=== PATIENT | male | born 1950 | race Caucasian/White ===

== ENCOUNTER 2017-09-12 07:00 | Outpatient (CLI) | payer MEDICARE ==
[~2017-09-12 07:00] MED LIST: AMLO10TA PO; CEPH500C2 PO; FURO-150 PO; IBUP-1594 PO; LORA10TA7 PO; LOSA100T28 PO; POTA10TA19 PO; SOLI10TA2 PO
[2017-09-13] MEDS ORDERED: LORA-512 PO (06:12)
[2017-09-13] MEDS ORDERED: ASPI-611 PO (06:12)
== END 2017-09-12 23:59 | disposition home or self-care (01) ==
LOC: LAB 07:00
PROVIDERS: ATTEND Urology
DX: C61 Malignant neoplasm of prostate (principal); Z87.891 Personal history of nicotine dependence
CPT/HCPCS: 36415; 84153

== ENCOUNTER 2017-09-13 05:33 | Day surgery (SDC) | payer MEDICARE ==
[2017-09-12 08:46] LABS: BASOPHILS % (AUTO) 0.4 % (0-1); EOSINOPHILS # (AUTO) 0.3 X10'3 (0-0.9); EOSINOPHILS % (AUTO) 3.4 % (0-6); HEMATOCRIT 41.9 % (42.0-52.0); HEMOGLOBIN 14.4 g/dl (14.0-17.9); LYMPHOCYTES # (AUTO) 1.5 X10'3 (1.1-4.8); MEAN CORPUSCULAR HEMOGLOBIN 32.1 PG (27.0-31.0); MEAN CORPUSCULAR HGB CONC 34.2 % (33.0-36.5); MEAN CORPUSCULAR VOLUME 93.7 FL (78-98); MEAN PLATELET VOLUME 9.6 FL (7.4-10.4); MONOCYTES # (AUTO) 0.5 X10'3 (0-0.9); MONOCYTES % (AUTO) 6.9 % (2-12); NEUTROPHILS # (AUTO) 5.6 X10'3 (1.8-7.7); NEUTROPHILS % (AUTO) 70.3 % (42-75); PLATELET COUNT 140 X10'3 (140-440); RED BLOOD COUNT 4.48 X10'6 (4.70-6.10); RED CELL DISTRIBUTION WIDTH 13.4 % (11.5-14.5); WHITE BLOOD COUNT 7.9 X10'3 (4.5-11.0)
[2017-09-12 09:05] LABS: PARTIAL THROMBOPLASTIN TIME 25 SECONDS (22-32); PROTHROMBIN TIME 10.3 SECONDS (9.0-12.0)
[2017-09-12 09:17] LABS: ALANINE AMINOTRANSFERASE 47 U/L (12-78); ALBUMIN 3.3 G/DL (3.4-5.0); ALBUMIN/GLOBULIN RATIO 0.9 (1.1-1.5); ALKALINE PHOSPHATASE 90 IU/L (46-116); ANION GAP 9 (8-16); ASPARTATE AMINO TRANSFERASE 21 U/L (10-37); BILIRUBIN,TOTAL 0.8 MG/DL (0.1-1.0); BLOOD UREA NITROGEN 23 MG/DL (7-18); BUN/CREATININE RATIO 23.2 (5.4-32.0); CALCIUM 8.2 MG/DL (8.5-10.1); CHLORIDE 107 MMOL/L (99-107); CHOL/HDL RATIO 4.4 (0.00-4.99); CHOLESTEROL 199 MG/DL (0-200); CREATININE 0.99 MG/DL (0.60-1.10); GLUCOSE 93 MG/DL (70-104); HDL CHOLESTEROL 45 MG/DL (35-60); LDL CHOLESTEROL 143 MG/DL (50-100); SODIUM 142 MMOL/L (135-145); TOTAL PROTEIN 7.1 G/DL (6.4-8.2); TRIGLYCERIDES 75 MG/DL (20-135); eGFR 75 ML/MIN
[~2017-09-13] VITALS: Ht 182.9 cm; Wt 159.6 kg
[2017-09-13] VITALS (13 sets, daily range): BP systolic 108–143; BP diastolic 55–106
[2017-09-13] MEDS ORDERED: LORA-512 PO (06:12)
[2017-09-13] MEDS ORDERED: ASPI-611 PO (06:12)
[2017-09-13] MEDS ORDERED: diphenhydrAMINE 25mg capsule PO PRN (06:15)
[2017-09-13] MEDS ORDERED: LORazepam 0.5 MG tablet PO PRN (06:15)
[2017-09-13] MEDS ORDERED: normal saline 1000ml 1,000 ML IV SCH (06:15)
[2017-09-13] MEDS ORDERED: fentaNYL/PF 50MCG/1 ML 2ML syringe ONE (07:45)
[2017-09-13] MEDS ORDERED: heparin 1,000unit/ml 10ml vial 10 ML ONE (07:45)
[2017-09-13] MEDS ORDERED: nitroGLYCERIN-Tridil 50MG/D5W 250 ML IV ONE (07:45)
[2017-09-13] MEDS ORDERED: midazolam 2 mg/2 ml injection ONE (07:45)
[2017-09-13] MEDS ORDERED: iohexol 350 MG/ML 50ML vial IV ONE (07:46)
[2017-09-13] MEDS ORDERED: iohexol 350MG/ML 100ml bottle IV ONE (07:46)
[2017-09-13] MEDS ORDERED: LIDOcaine 1% w/EPI 1:100,000 30ml vial (MDV) ONE (07:46)
[2017-09-13 10:30] LABS: ISTAT Hct MIX 39 %PCV (42-52); ISTAT O2 SATURATION MIX VENOUS 77 % (60-80); ISTAT SOURCE MIX
[2017-09-13 10:30] LABS: ISTAT HGB ART 13.6 g/dl (14.0-18.0); ISTAT Hct ART 40 %PCV (42-52); ISTAT O2 SATURATION ARTERIAL 96 % (95-98); ISTAT SOURCE ART
== END 2017-09-13 15:09 | disposition home or self-care (01) ==
LOC: SSTAY O 05:33
PROVIDERS: ATTEND Internal Medicine Cardiovascular Disease
DX: I25.118 Atherosclerotic heart disease of native coronary artery with other forms of angina pectoris (principal); I10 Essential (primary) hypertension; E78.5 Hyperlipidemia, unspecified; G47.33 Obstructive sleep apnea (adult) (pediatric); I25.2 Old myocardial infarction; E66.9 Obesity, unspecified; I08.0 Rheumatic disorders of both mitral and aortic valves; K21.9 Gastro-esophageal reflux disease without esophagitis; Z98.41 Cataract extraction status, right eye; Z98.42 Cataract extraction status, left eye; Z86.74 Personal history of sudden cardiac arrest; Z87.891 Personal history of nicotine dependence; Z72.89 Other problems related to lifestyle; Z79.82 Long term (current) use of aspirin; Z85.46 Personal history of malignant neoplasm of prostate; Z79.1 Long term (current) use of non-steroidal anti-inflammatories (NSAID); Z68.42 Body mass index [BMI] 45.0-49.9, adult; Z79.899 Other long term (current) drug therapy; Z98.890 Other specified postprocedural states; Z88.8 Allergy status to other drugs, medicaments and biological substances
CPT/HCPCS: 36415; 80053; 80061; 82803; 83880; 85014; 85025; 85610; 85730; 93005; 93460; 99152; 99153; A6257; J1644; J2250; J3010; J3490; J7030; Q9967; 93458; A4620

== ENCOUNTER 2018-02-16 12:18 | Outpatient (CLI) | payer MEDICARE ==
[2018-02-16] VITALS (20 sets, daily range): BP systolic 71–135; BP diastolic 50–97
[~2018-02-16 12:18] MED LIST changes: +ASPI-611 PO; -CEPH500C2 PO; +LORA-512 PO; -LORA10TA7 PO; +LOSA100T15 PO; -LOSA100T28 PO
== END 2018-02-16 23:59 | disposition home or self-care (01) ==
LOC: CARD DIAG 12:18
PROVIDERS: ATTEND Internal Medicine Cardiovascular Disease
DX: R42 Dizziness and giddiness (principal); I25.2 Old myocardial infarction; Z79.82 Long term (current) use of aspirin; Z87.891 Personal history of nicotine dependence
CPT/HCPCS: 93660

== ENCOUNTER 2018-11-22 06:31 | Day surgery (SDC) | payer MEDICARE ==
[~2018-11-22] VITALS: Ht 182.9 cm; Wt 157.0 kg
[2018-11-22] VITALS (8 sets, daily range): BP systolic 100–172; BP diastolic 51–87
[~2018-11-22 06:31] MED LIST changes: -AMLO10TA PO; -ASPI-611 PO; +ATOR-2 PO; -IBUP-1594 PO; -LORA-512 PO; -LOSA100T15 PO; +LOSA100T57 PO; +METO25TA6 PO
[2018-11-22 07:51] LABS: ISTAT CREATININE 1.1 mg/dL (0.8-1.3); ISTAT HGB 13.6 g/dl (14.0-18.0); ISTAT IONIZED CALCIUM 1.17 mmol/L (1.03-1.32); ISTAT K 4.5 mmol/L (3.5-5.1); POC BUN/CREATININE RATIO 25.5 (5.4-32.0)
[2018-11-22] MEDS ORDERED: epiNEPHrine 1 mg/ml inj ONE (08:18)
[2018-11-22] MEDS ORDERED: LIDOcaine 1% 30ml preserv. free vial ONE (08:18)
[2018-11-22] MEDS ORDERED: LIDOcaine 2% 5ml jelly MM ONE (08:30)
--- NOTE | 2018-11-22 08:36 | NUR ---
LEG BAG ATTACHED TO SUPRAPUBIC CATH CHANGED TO GRAVITY BAG FOR SURG, LEG BAG PLACED IN BACKPACK
[2018-11-22] MEDS ORDERED: cefazolin/dext.iso 2gm/100 ML IV ONE (08:45)
[2018-11-22] MEDS ORDERED: ringers solution, lacted 1,000 ML IV SCH ×2 (08:45→09:56)
[2018-11-22] MEDS ORDERED: famotidine 20mg tablet PO ONE (08:45)
[2018-11-22] MEDS ORDERED: DOCUMENT DATE & TIME OF BETA-BLOCKER PO ONE (08:45)
[2018-11-22] MEDS ORDERED: ceFAZolin 1GM/D5W- ADD-VANTAGE 50 ML IV ONE (08:45)
[2018-11-22] MEDS ORDERED: BUPIVAcaine/PF 2.5 mg/ml (0.25%) 30ml vial ONE (09:53)
[2018-11-22] MEDS ORDERED: labetalol 20mg/4ml (5mg/ml) syringe IV PRN (10:00)
[2018-11-22] MEDS ORDERED: hydrALAZINE 20mg/ml inj. IV PRN (10:00)
[2018-11-22] MEDS ORDERED: dexmedetomidine 200mcg/2ml inj. IV ONE (10:00)
[2018-11-22] MEDS ORDERED: ondansetron/PF 4mg/2ml inj IV PRN (10:00)
[2018-11-22] MEDS ORDERED: morphine 4 MG/ML inj SYRINge IV PRN ×2 (10:00)
[2018-11-22] MEDS ORDERED: fentaNYL/PF 50MCG/1 ML 2ML syringe IV PRN ×2 (10:00)
[2018-11-22] MEDS ORDERED: hydrALAZINE 20mg/ml inj. IV ONE (10:22)
[2018-11-22] MEDS ORDERED: acetaminophen 1,000mg/100ml IV 100 ML IV ONE (10:26)
[2018-11-22] MEDS ORDERED: fentaNYL/PF 50MCG/1 ML 2ML syringe ONE (10:28)
--- NOTE | 2018-11-22 11:00 | NUR ---
Received from OR via BED, accompanied by Anesthesiologist DR LUIS-- and report given by Anesthesiolgist. PATIENT A&OX4, DENIES PAIN, V/S WNL, NEUROVASCULAR CHECKS INTACT, 20G PIV LUE, SCD ON. DRESSING CDI TO POSTERIOR BACK NECK. F/C DRAINING CLEAR YELLOW URINE
--- NOTE | 2018-11-22 11:50 | NUR ---
PATIENT A&OX4, DENIES PAIN, V/S WNL, NEUROVASCULAR CHECKS INTACT, 20G PIV LUE D/C, SCD OFF. DRESSING CDI TO POSTERIOR BACK NECK. SUPRAPUBIC F/C DRAINING INTO LEG BAG CLEAR YELLOW URINE. I HAVE REVIEWED D/C INSTRUCTIONS WITH PATIENT AND HE HAS VERBALIZED UNDERSTANDING. PATIENT D/C HOME WITH ALL BELONGINGS AND [facility] GAVE TRANSPORT HOME.
== END 2018-11-22 11:50 | disposition home or self-care (01) ==
LOC: PAS 06:31
PROVIDERS: ATTEND Surgery
DX: D17.0 Benign lipomatous neoplasm of skin and subcutaneous tissue of head, face and neck (principal); D17.1 Benign lipomatous neoplasm of skin and subcutaneous tissue of trunk; I25.2 Old myocardial infarction; I10 Essential (primary) hypertension; E66.9 Obesity, unspecified; Z68.42 Body mass index [BMI] 45.0-49.9, adult; Z87.891 Personal history of nicotine dependence; Z85.038 Personal history of other malignant neoplasm of large intestine; Z85.46 Personal history of malignant neoplasm of prostate; Z88.8 Allergy status to other drugs, medicaments and biological substances; Z79.899 Other long term (current) drug therapy
CPT/HCPCS: 21930; 80047; J0131; J0171; J0360; J0690; J2001; J3010; J3490; 88304; A6258; A6449; A7000; J7120

== ENCOUNTER 2019-08-01 06:53 | Day surgery (SDC) | payer MEDICARE ==
[2019-07-31 14:02] LABS: BASOPHILS # (AUTO) 0.1 X10'3 (0-0.2); BASOPHILS % (AUTO) 0.7 % (0-1); EOSINOPHILS # (AUTO) 0.4 X10'3 (0-0.9); EOSINOPHILS % (AUTO) 5.4 % (0-6); HEMATOCRIT 44.1 % (42.0-52.0); HEMOGLOBIN 14.6 g/dl (14.0-17.9); LYMPHOCYTES # (AUTO) 2.4 X10'3 (1.1-4.8); LYMPHOCYTES % (AUTO) 32.5 % (21-51); MEAN CORPUSCULAR HEMOGLOBIN 32.2 PG (27.0-31.0); MEAN CORPUSCULAR HGB CONC 33.2 g/dL (33.0-36.5); MEAN CORPUSCULAR VOLUME 96.9 FL (78-98); MEAN PLATELET VOLUME 10.1 FL (7.4-10.4); MONOCYTES # (AUTO) 0.7 X10'3 (0-0.9); MONOCYTES % (AUTO) 9.7 % (2-12); NEUTROPHILS # (AUTO) 3.9 X10'3 (1.8-7.7); NEUTROPHILS % (AUTO) 51.7 % (42-75); PLATELET COUNT 139 X10'3 (140-440); RED BLOOD COUNT 4.55 X10'6 (4.70-6.10); RED CELL DISTRIBUTION WIDTH 12.6 % (11.5-14.5); WHITE BLOOD COUNT 7.4 X10'3 (4.5-11.0)
[2019-07-31 14:11] LABS: ALBUMIN 3.5 G/DL (3.4-5.0); ANION GAP 11 (8-16); BLOOD UREA NITROGEN 24 MG/DL (7-18); BUN/CREATININE RATIO 20.5 (5.4-32.0); CALCIUM 8.4 MG/DL (8.5-10.1); CHLORIDE 107 MMOL/L (99-107); CREATININE 1.17 MG/DL (0.60-1.10); GLUCOSE 78 MG/DL (70-104); POTASSIUM 4.3 MMOL/L (3.5-5.1); SODIUM 142 MMOL/L (135-145); TOTAL CARBON DIOXIDE 23.9 MMOL/L (24-32); eGFR 61 ML/MIN
[2019-07-31 14:15] LABS: PARTIAL THROMBOPLASTIN TIME 27 SECONDS (22-32)
[2019-08-01] VITALS (13 sets, daily range): BP systolic 145–182; BP diastolic 51–111
[~2019-08-01] VITALS: Ht 182.9 cm; Wt 73.0 kg
[2019-08-01] MEDS ORDERED: diphenhydrAMINE 25mg capsule PO PRN (07:25)
[2019-08-01] MEDS ORDERED: normal saline 1,000 ML IV SCH ×2 (07:25→10:50)
[2019-08-01] MEDS ORDERED: LORazepam 0.5 MG tablet PO PRN (07:25)
[2019-08-01] MEDS ORDERED: Diclofenac PO (07:26)
[2019-08-01] MEDS ORDERED: LIDOcaine/PRILOcaine 5gm cream TP ONE (07:30)
[2019-08-01] MEDS ORDERED: fentaNYL/PF 50MCG/1 ML 2ML syringe ONE (09:07)
[2019-08-01] MEDS ORDERED: heparin 1,000unit/ml 10ml vial 10 ML ONE (09:07)
[2019-08-01] MEDS ORDERED: LIDOcaine 1% (10mg/ml)w/preservative injection 20ml MDV ONE (09:07)
[2019-08-01] MEDS ORDERED: midazolam 2 mg/2 ml injection ONE (09:07)
[2019-08-01] MEDS ORDERED: verapamil 2.5 mg/ml inj IV ONE (09:07)
[2019-08-01] MEDS ORDERED: nitroGLYCERIN-Tridil 50MG/D5W 250 ML IV ONE (09:07)
[2019-08-01] MEDS ORDERED: iohexol 350 MG/ML 50ML vial IV ONE ×3 (09:08→10:03)
[2019-08-01] MEDS ORDERED: iohexol 350MG/ML 100ml bottle IV ONE (09:08)
== END 2019-08-01 16:00 | disposition home or self-care (01) ==
LOC: SSTAY O 06:53
PROVIDERS: ATTEND Internal Medicine Cardiovascular Disease
DX: R94.39 Abnormal result of other cardiovascular function study (principal); I25.10 Atherosclerotic heart disease of native coronary artery without angina pectoris; I10 Essential (primary) hypertension; E78.49 Other hyperlipidemia; G47.30 Sleep apnea, unspecified; M13.88 Other specified arthritis, other site; E66.9 Obesity, unspecified; Z68.42 Body mass index [BMI] 45.0-49.9, adult; Z98.890 Other specified postprocedural states; Z87.891 Personal history of nicotine dependence; Z79.01 Long term (current) use of anticoagulants; Z79.899 Other long term (current) drug therapy; Z85.46 Personal history of malignant neoplasm of prostate
CPT/HCPCS: 36415; 80048; 85025; 85610; 85730; 93005; 93458; 99152; 99153; C1769; C1894; J1644; J2001; J2250; J3010; J7030; Q0163; Q9967; A4620; A5120; J3490

== ENCOUNTER 2019-11-01 08:48 | Emergency (ER) | payer MEDICARE ==
[~2019-11-01] VITALS: Ht 182.9 cm; Wt 159.1 kg
[~2019-11-01 08:48] MED LIST changes: +Diclofenac PO; -METO25TA6 PO
[2019-11-01 09:38] LABS: BASOPHILS # (AUTO) 0.1 X10'3 (0-0.2); BASOPHILS % (AUTO) 0.7 % (0-1); EOSINOPHILS # (AUTO) 0.6 X10'3 (0-0.9); EOSINOPHILS % (AUTO) 7.5 % (0-6); HEMATOCRIT 46.3 % (42.0-52.0); HEMOGLOBIN 15.7 g/dl (14.0-17.9); LYMPHOCYTES # (AUTO) 2.1 X10'3 (1.1-4.8); LYMPHOCYTES % (AUTO) 24.6 % (21-51); MEAN CORPUSCULAR HEMOGLOBIN 32.7 PG (27.0-31.0); MEAN CORPUSCULAR HGB CONC 33.9 g/dL (33.0-36.5); MEAN CORPUSCULAR VOLUME 96.3 FL (78-98); MEAN PLATELET VOLUME 9.6 FL (7.4-10.4); MONOCYTES # (AUTO) 0.6 X10'3 (0-0.9); MONOCYTES % (AUTO) 7.2 % (2-12); PLATELET COUNT 157 X10'3 (140-440); RED BLOOD COUNT 4.81 X10'6 (4.70-6.10); WHITE BLOOD COUNT 8.4 X10'3 (4.5-11.0)
[2019-11-01 09:54] LABS: ALANINE AMINOTRANSFERASE 43 U/L (12-78); ALBUMIN 3.7 G/DL (3.4-5.0); ALKALINE PHOSPHATASE 90 IU/L (46-116); ANION GAP 10 (8-16); ASPARTATE AMINO TRANSFERASE 21 U/L (10-37); BILIRUBIN,TOTAL 0.6 MG/DL (0.1-1.0); BLOOD UREA NITROGEN 20 MG/DL (7-18); BUN/CREATININE RATIO 15.3 (5.4-32.0); CHLORIDE 105 MMOL/L (99-107); CREATININE 1.31 MG/DL (0.60-1.10); GLUCOSE 116 MG/DL (70-104); POTASSIUM 4.2 MMOL/L (3.5-5.1); SODIUM 139 MMOL/L (135-145); TOTAL CARBON DIOXIDE 24.1 MMOL/L (24-32); TOTAL PROTEIN 7.3 G/DL (6.4-8.2); eGFR 54 ML/MIN
[2019-11-01] MEDS ORDERED: normal saline 1000ml 1,000 ML IV ONE (10:05)
[2019-11-01] MEDS ORDERED: iohexol 350MG/ML 100ml bottle IV ONE (10:24)
[2019-11-01 13:32] VITALS: BP 130/78
== END 2019-11-01 13:34 | disposition home or self-care (01) ==
LOC: ER 08:48
DX: R55 Syncope and collapse (principal); I95.1 Orthostatic hypotension; R06.02 Shortness of breath; R42 Dizziness and giddiness; I25.10 Atherosclerotic heart disease of native coronary artery without angina pectoris; E78.00 Pure hypercholesterolemia, unspecified; Z88.6 Allergy status to analgesic agent; Z79.899 Other long term (current) drug therapy
CPT/HCPCS: 36415; 71045; 71275; 80053; 83880; 84484; 85025; 93005; 96360; 99285; J7030; Q9967